=== PATIENT | female | born 1955 | race Caucasian/White ===

== ENCOUNTER → 2018-02-21 | Outpatient (CLI) | payer OTHER ==
[~2018-02-21] MED LIST: DEPO METHYLPREDNISOLONE 80 MG/ML SDV ONE; IOPAMIDOL (ISOVUE 370) 100 ML BTL IV ONE; LIDOCAINE 1% 300 MG/30 ML SDV ONE; ROPIVACAINE HCL 150 MG/30 ML INJ ONE
== END ==
LOC: FIMAGING 10:13
PROVIDERS: ATTEND Orthopaedic Surgery
PROC: 3E0U3BZ Introduction of Anesthetic Agent into Joints, Percutaneous Approach (ICD-10-PCS; principal; 2018-02-21)
PROC: 3E0U33Z Introduction of Anti-inflammatory into Joints, Percutaneous Approach (ICD-10-PCS; principal; 2018-02-21)
DX: M16.11 Unilateral primary osteoarthritis, right hip (principal)
CPT/HCPCS: J1040; J2795; Q9967

== ENCOUNTER 2018-06-20 08:03 | Inpatient (IN) | payer OTHER ==
[~2018-06-20 08:03] MED LIST changes: -DEPO METHYLPREDNISOLONE 80 MG/ML SDV ONE; -IOPAMIDOL (ISOVUE 370) 100 ML BTL IV ONE; -LIDOCAINE 1% 300 MG/30 ML SDV ONE; +POVIDONE-IODINE 20 ML in SODIUM CL IRRIG SOLUTION 500 ML IRR ONE; +ROPIVACAINE 0.2% 80 MG, EPINEPHrine 0.2 MG, KETOROLAC TROMETHAMINE 30 MG in SYRINGE 0 ML IU ONE; -ROPIVACAINE HCL 150 MG/30 ML INJ ONE; +TRANEXAMIC ACID 1,000 MG in NS 100 ML IV ONE; +TRANEXAMIC ACID 3,000 MG in NS (SYRINGE) 50 ML IRR ONE
[2018-06-20] MEDS ORDERED: DEXAMETHASONE 4 MG/ML VIAL IVP ONE (08:16)
[2018-06-20] MEDS ORDERED: ONDANSETRON 4 MG/2 ML VIAL IVP ONE (08:16)
[2018-06-20] MEDS ORDERED: GABAPENTIN 300 MG CAP PO ONE (08:16)
[2018-06-20] MEDS ORDERED: ceFAZolin 2 GM/DEXTROSE 100 ML IV ONE (08:16)
[2018-06-20] MEDS ORDERED: FAMOTIDINE 20 MG TAB PO ONE (08:16)
[2018-06-20] MEDS ORDERED: ACETAMINOPHEN 325 MG TAB PO ONE (08:16)
[2018-06-20] MEDS ORDERED: LR 1,000 ML IV ONE (08:18)
[2018-06-20] MEDS ORDERED: MIDAZOLAM 2 MG/2 ML VIAL IVP ONE (08:22)
[2018-06-20] MEDS ORDERED: TRANEXAMIC ACID 3,000 MG/50 ML BAG IRR ONE (08:35)
[2018-06-20] MEDS ORDERED: ceFAZolin 1 GM/5 ML SYR ONE (08:36)
--- NOTE | 2018-06-20 08:41 | PDANEPAE ---
ANE Past Medical History - Cardiovascular History Hx Hypertension: No Hx Arrhythmias: No Hx Chest Pain: No Hx Coronary Artery / Peripheral Vascular Disease: No Hx CHF / Valvular Disease: No Hx Palpitations: No - Pulmonary History Hx COPD: No Hx Asthma/Reactive Airway Disease: No Hx Recent Upper Respiratory Infection: No Hx Oxygen in Use at Home: No Hx Sleep Apnea: No Sleep Apnea Screening Result - Last Documented: Negative - Neurologic History Hx Cerebrovascular Accident: No Hx Seizures: No Hx Dementia: No - Endocrine History Hx Diabetes: No - Renal History Hx Renal Disorders: No - Liver History Hx Hepatic Disorders: No - Neurological & Psychiatric Hx Hx Neurological and Psychiatric Disorders: Yes Neurological / Psychiatric History Comment: raynauds. depression - Cancer History Hx Cancer: No - Congenital Disorder History Hx Congenital Disorders: No - GI History Hx Gastrointestinal Disorders: No - Other Health History Other Health History: bruises easily. hysterectomy - Chronic Pain History Chronic Pain: No - Surgical History Prior Surgeries: L4-S1 fusion sx 2008. bunion sx 2015. hand sx 2011 ANE Review of Systems Review of Systems: - Exercise capacity METS (RN): 4 METS ANE Patient History - Allergies Allergies/Adverse Reactions: erythromycin base [Erythromycin Base] Allergy (Intermediate, Verified 06/07/18 11:17) Rash Penicillins Allergy (Intermediate, Verified 06/07/18 11:17) Rash - Home Medications Home medications: home medication list seen and reviewed Home Medications: LEXAPRO 10/25/09 [Last Taken 1 Day Ago ~06/19/18] Wellbutrin 10/25/09 [Last Taken 1 Day Ago ~06/19/18] Imitrex Prn 04/27/12 [Last Taken 2 Days Ago ~06/18/18] Cholecalciferol (Vitamin D3) 06/07/18 [Last Taken 1 Week Ago ~06/13/18] Dipika-C 500 mg Tablet 06/07/18 [Last Taken 1 Week Ago ~06/13/18] [place]-3 06/07/18 [Last Taken 1 Week Ago ~06/13/18] - NPO status NPO Status: no food or drink >8 hours NPO Since - Liquids (Date): 06/20/18 NPO Since - Liquids (Time): 06:00 NPO Since - Solids (Date): 06/19/18 NPO Since - Solids (Time): 19:00 - Smoking Hx Smoking Status: Former smoker - Family Anes Hx Family Hx Anesthesia Complications: none ANE Labs/Vital Signs - Labs - CBC Platelet Count: 322 - Vital Signs Blood Pressure: 121/82 Heart Rate: 72 Respiratory Rate: 14 O2 Sat (%): 99 Height: 165.1 cm Weight: 61.235 kg ANE Physical Exam - Airway Neck exam: FROM Mallampati Score: Class 1 Mouth exam: normal dental/mouth exam - Pulmonary Pulmonary: no respiratory distress, clear to auscultation - Cardiovascular Cardiovascular: regular rate and rhythym ANE Anesthesia Plan Anesthesia Plan: spinal
--- NOTE | 2018-06-20 08:44 | PDHPUP ---
History & Physical Update H&P update statement: This history and physical update is based on an assessment of the patient which was completed after admission or registration (within 24 hours), but prior to the surgery/procedure. H&P update: H&P reviewed & patient examined
[2018-06-20] MEDS ORDERED: PROPOFOL/EMULSION 500 MG/50 ML BOTTLE IV ONE (09:22)
[2018-06-20] MEDS ORDERED: BUPIVACAINE/DEXTROSE 7.5MG/ML 2 ML SPINAL AMP SP ONE (09:27)
[2018-06-20] MEDS ORDERED: PHENYLEPHRINE HCL 100 MCG/ML SYR ONE (10:11)
[2018-06-20] MEDS ORDERED: ONDANSETRON 4 MG/2 ML VIAL IVP PRN ×2 (10:42→11:17)
[2018-06-20] MEDS ORDERED: oxyCODONE IR 5 MG TAB PO PRN ×2 (10:42→11:17)
[2018-06-20] MEDS ORDERED: MEPERIDINE 25 MG/0.5 ML AMP IVP PRN (10:42)
[2018-06-20] MEDS ORDERED: ALBUTEROL 3 ML DEYVIAL IH PRN (10:42)
[2018-06-20] MEDS ORDERED: METOCLOPRAMIDE 10 MG/2 ML VIAL IVP PRN ×2 (10:42→11:17)
[2018-06-20] MEDS ORDERED: PHENYLEPHRINE HCL 100 MCG/ML SYR IVP PRN (10:42)
[2018-06-20] MEDS ORDERED: PROMETHAZINE HCL 25 MG/ML INJ IVP PRN ×2 (10:42→11:17)
[2018-06-20] MEDS ORDERED: NALOXONE HCL 0.4 MG/ML INJ IVP PRN (10:42)
[2018-06-20] MEDS ORDERED: HYDROmorphONE/DILAUDID 1 MG/ML INJ IVP PRN (10:42)
[2018-06-20] MEDS ORDERED: LR 500 ML IV PRN (10:42)
[2018-06-20] MEDS ORDERED: fentaNYL 100 MCG/2 ML INJ IVP PRN (10:42)
[2018-06-20] MEDS ORDERED: DIAZEPAM 5 MG/ML 1 ML SYR IVP PRN (10:42)
--- NOTE | 2018-06-20 10:55 | POSTOPPROG ---
Post Op Note Date of Operation: 06/20/18 Surgeon: Nolberto Sanchez Consumer Advocate: Leni Anesthesiologist: Jaki Anesthesia: IV Sedation, Spinal Pre-op Diagnosis: Right hip severe degenerative arthritis. Procedure: Right total hip arthroplasty Inf/Abcess present in the surg proc area at time of surgery?: No EBL: 100-500
[2018-06-20] MEDS ORDERED: LACTULOSE 20 GM/30 ML UDCUP PO PRN (11:17)
[2018-06-20] MEDS ORDERED: traMADol 50 MG TAB PO PRN (11:17)
[2018-06-20] MEDS ORDERED: DIPHENOXYLATE/ATROPINE LOMOTIL 1 TAB PO PRN (11:17)
[2018-06-20] MEDS ORDERED: BISACODYL 10 MG SUPP PR PRN (11:17)
[2018-06-20] MEDS ORDERED: ONDANSETRON DISINTEGRATING 4 MG TAB PO PRN (11:17)
[2018-06-20] MEDS ORDERED: PROMETHAZINE HCL 25 MG SUPPR PR PRN (11:17)
[2018-06-20] MEDS ORDERED: POLYETHYLENE GLYCOL 3350 17 GM PKT PO PRN (11:17)
[2018-06-20] MEDS ORDERED: diphenhydrAMINE 25 MG CAP PO PRN (11:17)
[2018-06-20] MEDS ORDERED: MAGNESIUM HYDROXIDE 30 ML UDCUP PO PRN (11:17)
[2018-06-20] MEDS ORDERED: TEMAZEPAM 15 MG CAP PO PRN (11:17)
[2018-06-20] MEDS ORDERED: CYCLOBENZAPRINE 10 MG TAB PO PRN (11:17)
[2018-06-20] MEDS ORDERED: NS 500 ML IV PRN (11:17)
--- NOTE | 2018-06-20 11:19 | POSTANESTH ---
Post Anesthetic Evaluation Cardiovascular Status: Normal, Stable Respiratory Status: Normal, Stable Level of Consciousness/Mental Status: Can Participate in Eval Pain Control: Adequate, Prn Tx Ordered Nausea/Vomiting Control: Adequate, Prn Tx Ordered Complications Possibly Related to Anesthesia: None Noted
[2018-06-20] MEDS ORDERED: fentaNYL 100 MCG/2 ML INJ ONE (11:28)
[2018-06-20] MEDS ORDERED: LR 1,000 ML IV SCH (11:30)
--- NOTE | 2018-06-20 11:37 | GOP ---
[f rep st] OPERATIVE REPORT DATE OF OPERATION: 06/20/2018 SURGEON: Nolberto Sanchez MD CARBON GRINDER: Pacheco Bernal, [facility] and Franco Ponce, PAC ANESTHESIA: A combination of Marcaine, spinal, and IV sedation. ANESTHESIOLOGIST: Dr. Florence Pollack PREOPERATIVE DIAGNOSIS: Right hip severe degenerative arthritis. POSTOPERATIVE DIAGNOSIS: Right hip severe degenerative arthritis. PROCEDURE PERFORMED: 06/20/2018, right total hip arthroplasty, ceramic femoral head on highly cross- linked polyethylene cup liner. FINDINGS: DESCRIPTION OF PROCEDURE: The patient was given 2 g of IV Ancef preoperatively within 60 minutes of surgery. She also received 1000 mg of preoperative IV tranexamic acid. She was placed on the operat ing room table and given spinal anesthesia with Marcaine by Dr. Pollack. She was then placed supine and given IV sedation. A Blandon catheter was not used. She wore a JESSIE stocking and SCD on the nonoperati ve leg. She was rolled to the left lateral decubitus position. The position was secured with the pe gboard table attachment. An axillary roll was used, and all pressure points were carefully padded. I was careful to lock her pelvis in a vertical position. Her perineum was isolated with plastic adhe sive drapes. Her right hip and right lower extremity were prepped with ChloraPrep. They were draped free using sterile sheets, stockinette, and Iob[place] plastic adhesive drapes. The [employer] Organization time-out was performed to verify the correct patient identity and the c orrect surgical side and site. The [place] time-out was also performed. I made a 5 to 6 inch straight oblique posterolateral hip skin incision. Subcutaneous tissues were sh arply divided and hemostasis was obtained using electrocautery. Her fascia prem was identified and s plit along the axis of its fibers. I curved posteriorly and proximally, and split the fascia of glut eus mary and bluntly split the muscle fibers in line with their orientation. A Charnley self-yanet ining retractor was inserted. Her sciatic nerve was located, partially exposed, and protected throug hout the procedure. The external rotators and the posterior hip capsule were divided as separate lay ers at the base of the femoral neck, tagged, and reflected posteriorly. A smooth 8-inch Steinmann pi n was inserted vertically into the ilium, superior to the acetabulum. An 8-inch drill bit was insert ed vertically into the greater trochanter and parallel to the first pin. The distance between the tw o was measured for leg length reference. Her femoral head was dislocated posteriorly. Severe degene rative changes were present on the femoral head. Her femoral neck was osteotomized at the appropriat e level and inclination. I was careful to preserve all the posterior capsule and most of the anterior capsule. The remnant of her labrum was excised. I prepared the femur first. This allowed me to physicians and surgeons the amount of natural femoral neck anteversion. This, in turn, allowed me to later determine the correct amount of cup anteversion. She only had a bout 10 degrees of natural femoral neck anteversion. Her canal was opened laterally with a box chise l. I used the starter reamer on power. I then hand broached sequentially up to a size 3. I used a [place] Accolade II standard offset size 3 broach as a trial stem. I was careful to lateralize adequ ately. Appropriate retractors were inserted to expose the acetabulum. The acetabulum was reamed sequentiall y up to 52 mm. I selected a 52 mm [place] Tritanium Trident II cluster hole hemispherical shell. Th is was tapped securely into place in the proper degree of inclination anteversion. I used the transv erse acetabular ligament and other acetabular bony landmarks to help me properly orient the cup. I performed a series of trial reductions to determine length and stability. I obtained intraoperativ e cross-table AP pelvis x-ray. I switched from the standard offset to a high offset to give me more offset, which also created greater stability. That also matched the offset on her opposite side. I also lengthened her a small amount. This created equal leg lengths. I also chose the 10 degree kapil ed liner to give me additional posterior stability. She has had a previous lumbosacral spine fusion, which increases her risk of dislocation. The 10 degree lip [place] X3 highly cross-linked polyethylene liner was inserted and tapped securely into place. I took a second cross-table AP pelvis x-ray and confirmed proper length and proper offse t. The [place] Accolade II stem in size 3 with high offset was inserted press-fit and was very tight fit. I did 1 final trial reduction and confirmed that the +5 mm neck length with a 36 mm head was t he proper combination. The [place] Biolox Delta ceramic head with an outside diameter of 36 mm and a neck length of +5 mm was tapped securely onto the clean trunnion. Her acetabulum was irrigated and cleaned. The hip was reduced 1 final time. She had excellent anterior and posterior stability and a ppropriate length. 40 mL of the joint anesthetic cocktail were injected into the capsule, the deep musculature, and subc utaneous tissues around the skin edges. The joint was thoroughly irrigated 1 final time with a dilut e Betadine solution. 50 cc of tranexamic acid solution were irrigated into the wound. Her sciatic n erve was reinspected and looked unharmed. The external rotators and the posterior hip capsule were repaired in separate layers with #2 FiberWir e sutures through drill holes in the greater trochanter. This provided a good posterior capsular and external rotator repair. The fascia prem was closed first with 2 interrupted [id number] #2 Fib erWire sutures, followed by a running #2 barbed Ethicon Stratafix PDO suture. The subcutaneous tissu es were closed in layers starting with interrupted 2-0 Monocryl sutures, followed by a running 0 norma ed Ethicon Stratafix Monoderm suture. The skin was closed with a running 3-0 barbed Ethicon Stratafi x Monoderm subcuticular suture. The skin edges were reapproximated and sealed with Dermabond glue. The wound was covered with a large piece of waterproof Mepilex surgical dressing. The sacral Mepilex dressing was also applied. A JESSIE stocking and SCD were applied to her right lower extremity. She wore a stocking and SCD on the opposite leg during the procedure. An abduction pillow was placed between her knees. She was awake emmett from anesthesia and rolled to the supine position on her [facility]. She was taken to PACU in satisfactory condition. There were no recognized intraoperative complications. The estimated blood loss was about 400 mL. The sponge and needle count were correct on 2 occasions. I used a [place] Tritanium Trident II hemispherical cluster hole acetabular shell with an outside maria ines meter of 52 mm. The liner was a [place] X3 10-degree highly cross-linked liner with an inside diamet er of 36 mm. The femoral component was a press-fit [place] high offset Accolade II in a size 3. The femoral head was a [place] Biolox Delta ceramic head with a +5 mm neck length and a 36 mm outside di ameter. Pacheco Bernal and Papo Ponce acted as surgical assistants. Their assistance was a medical necess ity for safe completion of procedure. /[id number]/MODL
--- NOTE | 2018-06-20 11:42 | PDMN ---
Medical Necessity Medical necessity: Pt meets inpt criteria per MD order and [facility] [place], [place] S-560, Hip Arthroplasty, A-2 days, IP only list. 62 y/o w/R hip severe degenerative arthritis admitted for R total hip arthroplasty and post-op care, AUTH# [id number] APPROVED FOR CPT 46736 DONE INT.
[2018-06-20] MEDS: KETOROLAC 15 MG/1 ML SDV IVP SCH ×3 (14:45→23:54)
[2018-06-20] MEDS: SENNOSIDES/DOCUSATE SODIUM TAB PO SCH (15:16)
[2018-06-20] MEDS: ACETAMINOPHEN 325 MG TAB PO SCH ×2 (15:16→23:58)
[2018-06-20] MEDS ORDERED: SUMAtriptan 50 MG TAB PO PRN (16:45)
[2018-06-20] MEDS: ceFAZolin 2 GM/DEXTROSE 100 ML IV SCH (17:05)
[2018-06-21] MEDS: FAMOTIDINE 20 MG TAB PO SCH ×2 (00:01→08:51)
[2018-06-21] MEDS: SENNOSIDES/DOCUSATE SODIUM TAB PO SCH ×2 (00:01→08:49)
[2018-06-21] MEDS: ASPIRIN 325 MG TAB PO SCH ×2 (00:01→08:51)
[2018-06-21] MEDS ORDERED: SUMAtriptan 50 MG TAB PO PRN (01:15)
[2018-06-21] MEDS: ceFAZolin 2 GM/DEXTROSE 100 ML IV SCH (01:19)
[2018-06-21] MEDS: ACETAMINOPHEN 325 MG TAB PO SCH ×2 (04:27→08:50)
[2018-06-21] MEDS: KETOROLAC 15 MG/1 ML SDV IVP SCH (05:16)
[2018-06-21] MEDS ORDERED: FERROUS SULFATE 325 MG TAB PO SCH (08:00)
[2018-06-21 08:23] VITALS: BP 104/63
[2018-06-21] MEDS ORDERED: ESCITALOPRAM OXALATE 10 MG TAB PO SCH (09:00)
[2018-06-21] MEDS ORDERED: buPROPion XL 150 MG TAB PO SCH (09:00)
--- NOTE | 2018-06-21 09:10 | SOAPPROG ---
SOAP Progress Note Assessment/Plan: Assessment: POD #1, s/p R GRECIA Awake, alert, afebrile. Normal sciatic nerve function. H/H ok. VSS. Mild pain. Post op films look good. Dressing clean and dry. OOB w/ PT yesterday. Plan: PT/OT today. D/c to home later today. ASA, Celebrex, tylenol, tramadol, and oxy. F/u in office in 3 weeks. 06/21/18 09:06 Objective: Vital Signs Temp Pulse Resp BP Pulse Ox 36.9 C 82 16 104/63 97 06/21/18 08:00 06/21/18 08:00 06/21/18 08:00 06/21/18 08:00 06/21/18 08:00 Laboratory Results 06/21/18 05:04 06/20/18 06/21/18 06/22/18 05:59 05:59 05:59 Intake Total 1850 Output Total 1750 Balance 100 ICD10 Worksheet Patient Problems: Problems Problem Status Onset Osteoarthritis of right hip Acute
--- NOTE | 2018-06-21 11:45 | ASMTLACE ---
MOR[facility] Length of stay for Answers: 2 days current admission Acuity / Level of Answers: Yes Care: Did the patient have an inpatient admission? # of Emergency department Answers: 0 visits in the last 6 months Social determinants Answers: Mental health diagnosis (anxiety, depression, pers onality disorders, etc.) Score: 8 Date Signed: 06/21/2018 11:44 AM Electronically Signed By:RAGHAV Alanis
--- NOTE | 2018-06-21 11:45 | ASMTCMCOM ---
CM Note CM Note Notes: Pt had planned hip surgery, resides alone. Pt dghtr to stay w her during recovery. PT rec outpatient. No CM d/c needs identified. Date Signed: 06/21/2018 11:45 AM Electronically Signed By:RAGHAV Alanis
== END 2018-06-21 11:56 | disposition home or self-care (01) | DRG 470 ==
LOC: F3N 08:03
PROVIDERS: ADMIT Orthopaedic Surgery; ATTEND Orthopaedic Surgery
PROC: 0SR904A Replacement of Right Hip Joint with Ceramic on Polyethylene Synthetic Substitute, Uncemented, Open Approach (ICD-10-PCS; principal; 2018-06-20 09:30)
DX: M16.11 Unilateral primary osteoarthritis, right hip (principal); F98.8 Other specified behavioral and emotional disorders with onset usually occurring in childhood and adolescence; Q65.89 Other specified congenital deformities of hip
CPT/HCPCS: 97110-GP; 97116-GP; 97161-GP; 97165-GO; 97535-GO; J0171; J0690; J1100; J1885; J2250; J2370; J2405; J2704; J2795; J3010

== ENCOUNTER 2018-09-02 09:13 | Emergency (ER) | payer OTHER | END 2018-09-02 10:31 | disposition home or self-care (01) | LOC: CED 09:13 ==